=== PATIENT | male | born 1950 ===

== ENCOUNTER → 2025-07-23 | Outpatient (CLI) | LOC: M SOG 07:20 | PROVIDERS: ATTEND Physician Assistant | DX: M25.561 Pain in right knee (principal); M17.11 Unilateral primary osteoarthritis, right knee; M11.261 Other chondrocalcinosis, right knee ==

== ENCOUNTER → 2025-08-09 | Outpatient (REF) | payer MEDICARE, BC ==
[2025-08-09 18:18] LABS: TOTAL PROTEIN,RANDOM URINE 9.3 MG/DL (0.0-14.0)
== END ==
LOC: M LAB REF 16:53
PROVIDERS: ATTEND Internal Medicine Nephrology
DX: R80.9 Proteinuria, unspecified (principal)